=== PATIENT | male | born 1985 | race Caucasian/White ===

== ENCOUNTER 2018-04-02 11:19 | Outpatient (CLI) | payer OTHER ==
--- NOTE | 2018-04-02 17:10 | XRAY Report ---
Procedure Date: 04/02/2018 Accession Number: [id number] / [id number] Procedure: XRN - Wrist 3 View RT CPT Code: FULL RESULT: EXAM: RIGHT WRIST RADIOGRAPHY EXAM DATE: 04/02/2018 12:08 PM. CLINICAL HISTORY: FOOSH right wrist. COMPARISON: None. TECHNIQUE: 3 views. FINDINGS: Bones: No displaced fracture. No suspicious focal osseous lesion. Joints: No malalignment. Soft Tissues: No focal soft tissue swelling appreciated. IMPRESSION: No acute osseous abnormality. [facility]
== END 2018-04-02 11:20 | disposition home or self-care (01) ==
LOC: DI.N 11:19
PROVIDERS: ATTEND Nurse Practitioner Gerontology
DX: M25.531 Pain in right wrist (principal)

== ENCOUNTER 2018-10-19 09:56 | Outpatient (CLI) | payer BC ==
--- NOTE | 2018-10-19 12:27 | XRAY Report ---
Reason: LEG JOINT PAIN Procedure Date: 10/19/2018 Accession Number: [id number] / [id number] Procedure: XR - Tib/Fib LT CPT Code: FULL RESULT: EXAM: LEFT TIBIA/FIBULA RADIOGRAPHY EXAM DATE: 10/19/2018 10:39 AM. CLINICAL HISTORY: Leg joint pain. COMPARISON: None. TECHNIQUE: 2 views. FINDINGS: Bones: Normal. No fracture or bone lesion. Joints: The visualized knee and ankle joints are normal. No effusions. Soft Tissues: Normal. No soft tissue swelling. IMPRESSION: Normal tibia/fibula radiography. [facility]
== END 2018-10-19 09:57 | disposition home or self-care (01) ==
LOC: DI 09:56
PROVIDERS: ATTEND Nurse Practitioner Gerontology
DX: M25.50 Pain in unspecified joint (principal)